=== PATIENT | female | born 2000 | race African-American/Black ===

== ENCOUNTER 2023-02-19 02:44 | Observation (INO) | payer SELFPAY ==
[2023-02-19] MEDS ORDERED: Lorazepam 1 MG TAB ONE (04:00)
[2023-02-19 04:01] LABS: Mean Corpuscular HGB CONC 31.8 g/dL (32.0-36.0); Mean Corpuscular Hemoglobin 23.9 pg (27.0-31.0); Mean Corpuscular Volume 75.2 fl (78.0-98.0); Mean Platelet Volume 9.2 fL (7.4-10.4); Platelet Count 266 10x3/uL (130-400); RBC Distribution Width 18.9 % (11.5-14.5); Red Blood Cell (RBC) Count 3.77 mill/uL (4.20-5.40); White Blood Cell (WBC) Count 9.6 10x3/uL (4.8-10.8)
[2023-02-19 04:20] LABS: ALT (SGPT) 11 U/L (8-55); AST (SGOT) 18 U/L (5-34); Acetaminophen Less than 10.0 mcg/mL (10.0-30.0); Albumin 3.9 g/dL (3.5-5.0); Alcohol 59 mg/dL (Less than 10); Alkaline Phosphatase 100 U/L (40-110); Anion Gap 13 mmol/L (10-20); BUN (Urea Nitrogen) 9 mg/dL (7.0-18.7); Bilirubin, Total 0.2 mg/dL (0.2-1.2); Calc. Creatinine Clearance 0 mL/min (70-130); Calcium 9.1 mg/dL (7.8-10.44); Carbon Dioxide 22 mmol/L (22-29); Chloride 107 mmol/L (98-107); Estimated GFR 104; Globulin 3.8 g/dL (2.4-3.5); Glucose 157 mg/dL (70-105); Potassium 3.2 mmol/L (3.5-5.1); Protein, Total 7.7 g/dL (6.0-8.3); Salicylate Less than 8.0 mg/dL (15.0-30.0); Sodium 139 mmol/L (136-145)
[2023-02-19 04:35] LABS: Anisocytosis SLIGHT = 6-15 cells (100X) (0-5/hpf); Eosinophils 3 % (0-10); Hypochromia SLIGHT = 6-15 cells (100X) (0-5/hpf); Lymphocytes 38 % (21-51); MDiff Complete? YES; Microcytosis SLIGHT = 6-15 cells (100X) (0-5/hpf); Monocytes 6 % (0-10); Neutrophil 53 % (42-75); Platelet Morphology Comment Appears Adequate; Polychromasia SLIGHT = 2-3 cells (100X) (0-2/hpf); Tear Drops SLIGHT = 2-5 cells (100X) (0-1/hpf)
[2023-02-19] MEDS ORDERED: LORazepam 2 MG/ML SYR.(CARPUJECT) ONE (04:55)
[2023-02-19 06:21] LABS: Amphetamine Not Detected (NotDetected); Barbiturates Screen Not Detected (NotDetected); Benzodiazepine Screen Not Detected (NotDetected); Cocaine Metabolite Screen Not Detected (NotDetected); Methadone Not Detected (NotDetected); Methamphetamine Not Detected (NotDetected); Opiate Screen Not Detected (NotDetected); Oxycodone Screen Not Detected (NotDetected); Phencyclidine (PCP) Not Detected (NotDetected); THC/Cannabinoid Screen Detected (NotDetected); Tricyclic Screen Not Detected (NotDetected)
[2023-02-19 09:58] LABS: Free T4 (Free Thyroxine) 0.89 ng/dL (0.70-1.48); Thyroid Stimulating Hormone 1.8019 uIU/mL (0.35-4.94)
[2023-02-19] MEDS ORDERED: Ondansetron ODT 4 MG TAB SL PRN (10:45)
[2023-02-19] MEDS ORDERED: Acetaminophen 325 MG TAB PO PRN ×2 (10:45→11:39)
[2023-02-19] MEDS ORDERED: Ondansetron PF 4 MG/2 ML Vial IVP PRN ×2 (10:45→11:39)
[2023-02-19 10:58] VITALS: BMI 43.1
[2023-02-19] MEDS ORDERED: Ondansetron ODT 4 MG TAB PO PRN (11:39)
[2023-02-19] MEDS ORDERED: Potassium Chloride 20 MEQ TAB PO SCH (11:42)
[2023-02-19] MEDS ORDERED: Pantoprazole 40 MG VIAL IVP SCH (12:00)
[2023-02-19 12:57] LABS: Magnesium 1.9 mg/dL (1.6-2.6)
[2023-02-19] MEDS: 1/2 NS w/KCL 20 mEq 1,000 ML IV SCH ×2 (13:23→23:01)
[2023-02-20 05:38] LABS: #Eosinphils 0.1 thou/uL (0.0-0.7); #Lymphocytes 1.8 thou/uL (1.20-3.40); #Monocytes 0.4 thou/uL (0.11-0.59); #Neutrophils 3.6 thou/uL (1.40-6.50); %Basophils 0.3 % (0.0-1.0); %Lymphocytes 30.5 % (21.0-51.0); %Monocytes 6.9 % (0.0-10.0); %Neutrophils 60.2 % (42.0-75.0); Hemoglobin 8.4 g/dL (12.0-16.0); Mean Corpuscular HGB CONC 30.7 g/dL (32.0-36.0); Mean Corpuscular Hemoglobin 23.3 pg (27.0-31.0); Mean Corpuscular Volume 75.9 fl (78.0-98.0); Mean Platelet Volume 8.7 fL (7.4-10.4); Platelet Count 252 10x3/uL (130-400); Red Blood Cell (RBC) Count 3.62 mill/uL (4.20-5.40)
[2023-02-20 05:57] LABS: Anion Gap 10 mmol/L (10-20); BUN (Urea Nitrogen) 8 mg/dL (7.0-18.7); Calc. Creatinine Clearance 204 mL/min (70-130); Calcium 8.4 mg/dL (7.8-10.44); Carbon Dioxide 22 mmol/L (22-29); Chloride 110 mmol/L (98-107); Estimated GFR 119; Glucose 118 mg/dL (70-105); Potassium 3.7 mmol/L (3.5-5.1); Sodium 138 mmol/L (136-145)
[2023-02-20] MEDS ORDERED: Ferrous Sulfate 325 MG TAB PO SCH (08:00)
[2023-02-20] MEDS ORDERED: Pantoprazole 40 MG VIAL IVP SCH (09:00)
[2023-02-20 12:09] VITALS: BP 120/66; TEMP 97.7
== END 2023-02-20 14:10 | disposition home or self-care (01) ==
LOC: ERS 02:44 → 2SW 10:24
PROVIDERS: ADMIT Emergency Medicine; ATTEND Emergency Medicine
DX: R00.0 Tachycardia, unspecified (principal); F12.90 Cannabis use, unspecified, uncomplicated; F10.929 Alcohol use, unspecified with intoxication, unspecified; E87.6 Hypokalemia; D50.9 Iron deficiency anemia, unspecified; E66.01 Morbid (severe) obesity due to excess calories; Z68.41 Body mass index [BMI] 40.0-44.9, adult; Y90.2 Blood alcohol level of 40-59 mg/100 ml
CPT/HCPCS: 36415; 71045; 80048; 80053; 80306; 80307; 83735; 84439; 84443; 85025; 93005; 96361; 96374; 96375; 96376; C9113; G0378; J2060; J3480